=== PATIENT | female | born 1965 | race Two or more races ===

== ENCOUNTER → 2021-05-20 10:30 | Outpatient (CLI) | payer OTHER ==
[~2021-05-20 10:30] MED LIST: CYTOMEL25 MCG PO
== END | disposition home or self-care (01) ==
LOC: PPH VACUNA 10:30
PROVIDERS: ATTEND Emergency Medicine Pediatric Emergency Medicine
DX: Z23 Encounter for immunization (principal)

== ENCOUNTER 2022-07-30 16:30 | Emergency (ER) | payer OTHER ==
[~2022-07-30] VITALS: Ht 165.1 cm; Wt 81.6 kg
[2022-07-30] MEDS ORDERED: SYNTHROID75 MCG PO (16:45)
== END 2022-07-30 19:55 | disposition home or self-care (01) ==
LOC: ER 16:30
DX: M25.571 Pain in right ankle and joints of right foot (principal)

== ENCOUNTER 2024-03-22 10:18 | Outpatient (CLI) | payer OTHER ==
[~2024-03-22 10:18] MED LIST changes: +SYNTHROID75 MCG PO
== END 2024-03-22 10:32 | disposition home or self-care (01) ==
LOC: RAD 10:18
PROVIDERS: ATTEND General Practice
DX: M54.50 Low back pain, unspecified (principal); R10.11 Right upper quadrant pain

== ENCOUNTER 2024-09-29 07:58 | Outpatient (CLI) | payer OTHER | END 2024-09-29 08:10 | disposition home or self-care (01) | LOC: RAD 07:58 | PROVIDERS: ATTEND Physical Medicine & Rehabilitation | DX: M54.2 Cervicalgia (principal); M54.12 Radiculopathy, cervical region | CPT/HCPCS: 72141 ==